=== PATIENT | male | born 1955 | race African-American/Black ===

== ENCOUNTER → 2019-11-28 | Outpatient (CLI) | payer OTHER ==
[~2019-11-28] MED LIST: ASPIRIN81 MG PO; ATORVASTATIN CA10 MG PO; FINASTERIDE5 MG PO; FUROSEMIDE40 MG PO; LANTUS100 UNITS/ SQ; LASIX20 MG PO; LISINOPRIL10 MG PO; NOVOLOG100 UNIT/1 SQ; PIOGLITAZONE30 MG PO; TAMSULOSIN HCL0.4 MG PO
--- NOTE | 2019-11-28 14:15 | Diagnostic Imaging Report ---
EXAMINATION: CHEST 2 VIEWS INDICATION: Shortness of breath COMPARISON: Chest radiograph 02/11/2016 FINDINGS: LINES/TUBES:None LUNGS:Linear right lung base opacities. Unchanged right ron-diaphragmatic elevation. PLEURA:No pleural effusion or pneumothorax. MEDIASTINUM:The cardiomediastinal silhouette appears normal in size and shape. BONES/SOFT TISSUES:No acute osseous injury. Sternotomy wires in place. ABDOMEN:No free air under the diaphragm. IMPRESSION: Right basilar subsegmental atelectasis and unchanged right hemidiaphragmatic elevation. No focal pneumonia or pulmonary edema. Signed by: Dante Feliz MD on 11/28/2019 2:11 PM
== END ==
LOC: RAD 13:22
PROVIDERS: ATTEND Family Medicine
DX: R06.02 Shortness of breath (principal)
CPT/HCPCS: 71046

== ENCOUNTER 2021-10-25 13:32 | Emergency (ER) | payer OTHER ==
[~2021-10-25] VITALS: Ht 170.2 cm; Wt 113.4 kg
[2021-10-25 14:10] LABS: ABG HCO3 34 mmol/L (22-26); ABG PCO2 57 mmHg (35-45); ABG PH 7.38 (7.35-7.45); ABG PO2 118 mmHg (80-105); ABG TCO2 36
[2021-10-25] MEDS ORDERED: CLOPIDOGREL75 MG PO (14:35)
[2021-10-25] MEDS ORDERED: METOPROLOL SUCC25 MG PO (14:35)
[2021-10-25] MEDS ORDERED: METFORMIN HCL500 MG PO (14:35)
[2021-10-25] MEDS ORDERED: KLOR-CON 1010 MEQ PO (14:35)
[2021-10-25] MEDS ORDERED: NEURONTIN300 MG PO (14:35)
[2021-10-25] MEDS ORDERED: ACTOS30 MG PO (14:35)
[2021-10-25 14:38] LABS: BASOPHILS % 0.2 % (0.0-1.0); EOSINOPHILS # (AUTO) 0.2 (0.0-0.4); EOSINOPHILS % 3.7 % (0.0-6.0); HEMATOCRIT 38.8 % (38.2-49.6); HEMOGLOBIN 12.8 g/dL (14.0-18.0); LYMPHOCYTES # (AUTO) 1.4 (1.0-3.2); LYMPHOCYTES % 32.9 % (18.0-39.1); MEAN CORPUSCULAR HEMOGLOBIN 29.5 pg (28-32); MEAN CORPUSCULAR VOLUME 89.4 fL (81-99); MONOCYTES # (AUTO) 0.5 (0.2-0.8); MONOCYTES % 10.4 % (4.4-11.3); NEUTROPHILS # (AUTO) 2.3 (2.1-6.9); NEUTROPHILS % 52.6 % (38.7-80.0); PLATELET COUNT 168 x10e3/uL (140-360); RED BLOOD COUNT 4.34 x10e6/uL (4.3-5.7); RED CELL DISTRIBUTION WIDTH 13.3 % (11.7-14.4)
[2021-10-25 14:55] LABS: ALANINE AMINOTRANSFERASE 11 IU/L (0-55); ALBUMIN 3.9 g/dL (3.5-5.0); ALKALINE PHOSPHATASE 57 IU/L (40-150); ANION GAP 14.4 mmol/L (8-16); BLOOD UREA NITROGEN 11 mg/dL (7-26); BUN/CREATININE RATIO 13 (6-25); CALCIUM 8.9 mg/dL (8.4-10.2); CARBON DIOXIDE 32 mmol/L (22-29); CHLORIDE 100 mmol/L (98-107); CREATINE KINASE 801 IU/L (30-200); CREATININE, SERUM 0.86 mg/dL (0.72-1.25); GLUCOSE 172 mg/dL (74-118); INR 1.1; POTASSIUM 4.4 mmol/L (3.5-5.1); PROTHROMBIN TIME 15.2 seconds (11.9-14.5); SODIUM 142 mmol/L (136-145)
[2021-10-25 14:56] LABS: PARTIAL THROMBOPLASTIN TIME 34.9 seconds (23.8-35.5)
[2021-10-25 15:29] LABS: CLARITY,URINE HAZY (CLEAR); COLOR,URINE YELLOW (YELLOW); KETONES,URINE NEGATIVE (NEGATIVE); LEUKOCYTE ESTERASE ,URINE NEGATIVE (NEGATIVE); NITRITE,URINE NEGATIVE (NEGATIVE); PROTEIN,URINE DIPSTICK NEGATIVE (NEGATIVE); URINE UROBILINOGEN 1 mg/dL (0.2 - 1)
[2021-10-25 15:39] LABS: BACTERIA,URINE FEW /HPF; EPITHELIAL CELLS,URINE FEW /LPF; RBC,URINE 0-5 /HPF (0-5); WBC,URINE (MAN) 0-5 /HPF (0-5)
[2021-10-25] MEDS ORDERED: IOPAMIDOL 370 MG/ML 100 ML INFUS..BTL INJ ONE (16:37)
[2021-10-25] MEDS ORDERED: FUROSEMIDE INJ 10 MG/ML 4 ML VIAL IV ONE (17:15)
[2021-10-25] MEDS ORDERED: FUROSEMIDE INJ 10 MG/ML 4 ML VIAL ONE (17:29)
== END 2021-10-25 18:39 | disposition home or self-care (01) ==
LOC: ER 13:49
DX: I50.30 Unspecified diastolic (congestive) heart failure (principal); Z20.822 Contact with and (suspected) exposure to COVID-19
CPT/HCPCS: 36415; 36600; 71045; 71260; 80053; 81001; 82550; 82553; 82805; 82948; 83880; 84484; 85025; 85610; 85730; 87040; 87086; 93005; 94799; 99284; J1940; Q9967; U0002